=== PATIENT | female | born 1930 | race Caucasian/White ===

== ENCOUNTER 2018-11-10 17:16 | Inpatient (IN) ==
[2018-11-10] MEDS ORDERED: ACETAMINOPHEN 325 MG TABLET PO ONE (17:25)
[2018-11-10] MEDS ORDERED: 0.9 % SODIUM CHLORIDE 1,000 ML IV ONE ×3 (17:28→19:55)
[2018-11-10] MEDS ORDERED: cefTRIAXone 1 GM VIAL IV ONE (18:10)
--- NOTE | 2018-11-10 18:23 | XRay Report ---
HISTORY: Fever FINDINGS: A small patchy infiltrate has developed inferiorly and medially in the right lower lobe. Medially in the left lung base there is a wedge-shaped band of consolidated lung parenchyma. This was present on prior exams and may represent residual scar tissue. The mid and upper lung morales are clear. The heart is upper limits of normal in size. There is no congestive heart failure or pleural effusion. Moderate arthritis is present in both shoulders, right worse than left. IMPRESSION: Mild right lower lobe pneumonia Interpreted and Authenticated by: Farhan Caruso 11/10/18
[2018-11-10 18:37] LABS: Basophils # (Auto) 0 K/mcL (0.0-0.3); Basophils % (Auto) 0.1 % (0.0-2.0); Eosinophils # (Auto) 0 K/mcL (0.0-0.7); Eosinophils % (Auto) 0 % (0.0-7.0); Granulocytes % (Auto) 86.7 % (38.0-78.0); Lymphocytes # (Auto) 0.8 K/mcL (1.5-4.8); Lymphocytes % (Auto) 5.1 % (15.5-49.0); Mean Cell Volume 94.1 fL (80.0-100.0); Mean Corpuscular HGB Conc 32.9 g/dL (31.0-36.0); Monocytes # (Auto) 1.3 K/mcL (0.1-0.9); Monocytes % (Auto) 8.1 % (1.0-12.0); Platelet Count 252 K/mcL (140-440); RBC 4.14 M/mcL (4.00-5.20); Red Cell Distribution Width 13.9 % (11.5-14.5)
[2018-11-10 18:50] LABS: ALT/SGPT 9 U/l (0-40); Albumin 3.7 gm/dL (3.2-5.2); Albumin/Globulin Ratio 1.2 (1.0-2.3); Alkaline Phosphatase 83 U/L (39-117); Blood Urea Nitrogen 22 mg/dl (8-23)
[2018-11-10 19:01] LABS: Appearance,Urine CLOUDY; Bacteria,Urine 0 /hpf (0); Bilirubin,Urine NEG (NEG); Color,Urine YELLOW; Glucose,Urine (UA) NEGATIVE (NEG); Leukocyte Esterase,Urine 250 /uL (NEG); Mucus,Urine MOD /hpf (0); Protein,Urine 100 mg/dL (NEG); Specific Gravity,Urine 1.014 (1.000-1.035); Urine Blood 0.03 mg/dL (<0.03); Urine RBC 52 /hpf (0-1); Urine Squamous Epithelial Cell 0 /hpf (0-4); Urine WBC > 182 /hpf (0-4); Urobilinogen,Urine NEG (NEG)
--- NOTE | 2018-11-10 19:15 | Emergency Department Note ---
Fever HPI - General Chief Complaint: Fever Stated Complaint: Fever Time Seen by Provider: 11/10/18 17:27 Source: EMS Mode of arrival: EMS Limitations: no limitations - History of Present Illness HPI Narrative: 87-year-old female presents with 103 fever, weakness, and worsening confusion. She does have dementia and lives in assisted living facility. They could not get her up and out of bed and noted she had a fever. They sent her to minor care who further sent her to the ER for further evaluation. patient is very confused. States she does need to be here and she is not sick. She denies cough or cold symptoms however family with her reports they think she is had a cough. Denies nausea, vomiting, or diarrhea. No sore throat or ear pain. No abdominal pain. No dysuria or frequency. Extremely poor historian. - Related Data Home Medications Medication Instructions Recorded Confirmed carboxymethylcellulose sodium 0.5 1 drp OPHTHALMIC 4-8XD PRN 04/17/18 11/03/18 % eye drops vitamins A,C,Z-ydgg-fbizwj 14,320 1 cap PO BID 04/17/18 11/03/18 unit-226 mg-200 unit capsule Previous Rx's Medication Instructions Recorded Briefs, Pull-Ups, Pads/Liners #240 each 10/09/17 Underpads, Disposable #150 each 10/09/17 Underpads, Washable #2 each 10/09/17 acetaminophen 325 mg tablet 650 mg PO Q4H PRN #90 tab 10/09/17 loperamide 2 mg capsule 2 mg PO .COMPLEX PRN #30 cap MDD 8 10/09/17 capsules psyllium oral powder 2 tsp PO QDAY PRN #300 g 10/09/17 terbinafine HCl 1 % topical cream 1 applic TOPICAL .COMPLEX #30 g 10/09/17 polyethylene glycol 3350 17 17 g PO BID PRN #255 g 03/19/18 gram/dose oral powder sennosides 8.6 mg-docusate sodium 1 tab PO BID #180 tab 03/19/18 50 mg tablet pantoprazole 40 mg tablet,delayed 40 mg PO QDAY #90 tab 04/29/18 release donepezil 10 mg tablet 10 mg PO QHS #90 tab 09/26/18 metoprolol succinate ER 50 mg 50 mg PO QDAY #90 tab 09/26/18 tablet,extended release 24 hr oxybutynin chloride ER 10 mg 10 mg PO QAM #90 tab 09/26/18 tablet,extended release 24 hr sertraline 50 mg tablet 50 mg PO QHS #90 tab 10/13/18 cholecalciferol (vitamin D3) 2,000 2,000 unit PO QAM #90 cap 10/17/18 unit capsule atorvastatin 10 mg tablet 10 mg PO QHS #90 tab 10/21/18 calcium carbonate 600 mg calcium 600 mg PO QAM #90 tab 10/21/18 (1,500 mg) tablet dabigatran etexilate 75 mg capsule 75 mg PO BID #180 cap 10/21/18 diltiazem CD 120 mg 120 mg PO QAM #90 cap 10/21/18 capsule,extended release 24 hr furosemide 20 mg tablet 20 mg PO .COMPLEX #90 tab 10/21/18 xhlpmjts-dkh-iqzer acid 0.4 1 tab PO QAM #90 tab 10/21/18 mg-lycopene 300 mcg-lutein 250 mcg tablet cyanocobalamin (vit B-12) 500 mcg 500 mcg PO QAM #90 tab 10/28/18 tablet Allergies Allergy/AdvReac Type Severity Reaction Status Date / Time codeine AdvReac Mild Vomiting Verified 11/03/18 11:28 Review of Systems All systems ED: reviewed and negative except as stated. Fever PMH - Past Medical History [facility] Narrative: Medical History (Last Reviewed 11/03/18 @ 11:55 by Mark Campos MD) PAF (paroxysmal atrial fibrillation) (Chronic) Secondary hyperparathyroidism of renal origin (Chronic) Vitamin D deficiency (Chronic) Localized edema due to fluid overload (Chronic) Benign hypertension with CKD (chronic kidney disease) stage III (Chronic) CKD (chronic kidney disease) stage 3, GFR 30-59 ml/min (Chronic) Dementia due to Alzheimer's disease (Chronic) Memory loss (Chronic) Urinary tract infection (Chronic) Hypothermia (Chronic) Atrial fibrillation with RVR (Chronic) Severe sepsis with acute organ dysfunction (Chronic) Onychogryposis of toenail (Chronic) Ecchymosis on examination (Resolved) Leukocytosis (Chronic) Noncompliance with medication regimen (Chronic) Syncope (Resolved) Emesis (Resolved) Sinusitis, acute (Resolved) Stress and adjustment reaction (Chronic) Anxiety (Chronic) Vasomotor instability (Chronic) Schatzki's ring (Chronic) Pes planus (Chronic 05/27/14) Peripheral vascular disease (Chronic) Overweight (Chronic) Osteoporosis (Chronic) Osteoarthritis (Chronic) Liver lesion (Chronic) Lichen simplex chronicus (Chronic) Hypotension (Chronic 07/14/13) Hyperlipidemia (Chronic) Hypercalcemia (Chronic) Hiatal hernia (Chronic) Hemorrhoids (Chronic) Hammer toe (Chronic) Hallux valgus, acquired (Chronic) GERD (gastroesophageal reflux disease) (Chronic) Fatigue (Chronic 07/14/13) Elevated serum creatinine (Chronic 02/21/14) Elevated CPK (Chronic) Edema (Chronic) Dyspepsia (Chronic) Depression (Chronic 05/27/14) Colon adenoma (Chronic) Carpal tunnel syndrome, right (Chronic) Right carotid bruit (Chronic) Cardiomegaly (Chronic) Atrial fibrillation (Chronic 03/10/13) Adrenal nodule (Chronic) Pneumonia (Inactive) Past Surgical History (Last Reviewed 11/03/18 @ 11:55 by Mark Campos MD) H/O esophagogastroduodenoscopy (Chronic 03/03/10) Hx of colonoscopy (Chronic 03/15/11) H/O unilateral oophorectomy (Inactive) History of appendectomy (Inactive) History of bladder surgery (Inactive) Hx of cataract surgery (Inactive) Hx of cholecystectomy (Inactive) Hx of tonsillectomy (Inactive) S/P bunionectomy (Inactive) S/P hammer toe correction (Inactive) S/P hemorrhoidectomy (Inactive) S/P lumbar spinal fusion (Inactive) S/P total knee arthroplasty (Inactive) Medical history: Reports: arthritis, atrial fibrillation, GERD, hyperlipidemia, osteoporosis, peripheral artery disease, other (patient relatively poor historian; reports placed on a blood pressure medication and blood thinner, reason not known) - Social History smoking status: Former smoker Alcohol use: Reports: None Drug use: Reports: none Physical Exam Limitations: no limitations General appearance: alert (Alert and converses and answers yes and no but obviously very confused. This is her baseline due to dementia but may be slightly worse according to family), other (warm) Head: atraumatic, normocephalic, normal inspection Eye: Present: normal appearance. Absent: conjunctival injection ENT: normal exam, normal oropharynx, mucous membranes moist, normal external ear exam Neck: Present: normal inspection, full ROM, trachea midline. Absent: tenderness, meningismus, lymphadenopathy Chest: Present: symmetric chest wall rise Respiratory: Present: normal lung sounds bilaterally, other (Diminished in the bases bilaterally otherwise clear throughout). Absent: respiratory distress, rales/crackles, accessory muscle use Cardiovascular: Present: tachycardia (A. fib in the 120s on arrival. After 500 L bolus of fluid she is sinus rhythm in the 80s.), normal heart sounds Abdominal: Present: soft, normal bowel sounds. Absent: distention, tenderness, guarding, mass Extremities: Present: normal inspection. Absent: pedal edema Neurological: Present: alert, oriented X3 Psychiatric: Present: normal affect, normal mood Skin: Present: warm, dry, intact, normal color. Absent: rash, cyanosis, diaphoresis, erythema Course Course Narrative: At 1999, I did speak with Dr. Moreno, hospitalist who agrees to accept this patient. He would like us to hang another liter of fluid, started Levophed drip, and start Levaquin and Zosyn which have all been ordered. Vital Signs Temperature 99.9 F H 11/10/18 17:17 Pulse Rate 135 H 11/10/18 17:17 Respiratory Rate 18 11/10/18 17:17 Blood Pressure 109/65 11/10/18 17:17 Pulse Oximetry (%) 92 11/10/18 17:17 Temperature 99.7 F H 11/10/18 20:31 Pulse Rate 64 11/10/18 20:31 Respiratory Rate 21 11/10/18 20:31 Blood Pressure 115/56 11/10/18 20:31 Pulse Oximetry (%) 100 11/10/18 20:31 Fever - Lab Data Lab results reviewed: Yes I reviewed the patient's lab results. Result diagrams: 11/10/18 17:36 11/10/18 17:36 Lab Results 11/10/18 11/10/18 11/10/18 Range/Units 17:36 17:36 17:36 WBC 15.9 H (4.5-11.0) K/mcL RBC 4.14 (4.00-5.20) M/mcL Hgb 12.8 (12.0-15.0) g/dL Hct 39.0 (36.0-48.0) % MCV 94.1 (80.0-100.0) fL MCH 31.0 (26.0-34.0) pg MCHC 32.9 (31.0-36.0) g/dL RDW 13.9 (11.5-14.5) % Plt Count 252 (140-440) K/mcL MPV 9.6 (7.4-10.4) fL Gran % 86.7 H (38.0-78.0) % Lymph % (Auto) 5.1 L (15.5-49.0) % [place] % (Auto) 8.1 (1.0-12.0) % Eos % (Auto) 0 (0.0-7.0) % Baso % (Auto) 0.1 (0.0-2.0) % Gran # 13.8 H (1.8-8.0) K/mcL Lymph # (Auto) 0.8 L (1.5-4.8) K/mcL [place] # (Auto) 1.3 H (0.1-0.9) K/mcL Eos # (Auto) 0 (0.0-0.7) K/mcL Baso # (Auto) 0 (0.0-0.3) K/mcL VBG Lactic Acid 1.2 (0.5-2.0) mmol/L Sodium 138 (133-145) mmol/L Potassium 4.1 (3.3-5.1) mmol/L Chloride 102 (96-108) mmol/L Carbon Dioxide 21 L (22-30) mmol/L Anion Gap 15.0 (8-16) BUN 22 (8-23) mg/dl Creatinine 1.5 H (0.6-1.1) mg/dl GFR Calculation 31 Glucose 118 H (70-105) mg/dL Calcium 9.5 (8.6-10.4) mg/dl Total Bilirubin 0.6 (0.0-1.0) mg/dL AST 21 (0-37) U/l ALT 9 (0-40) U/l Alkaline Phosphatase 83 (39-117) U/L Total Protein 6.9 (5.9-8.4) gm/dL Albumin 3.7 (3.2-5.2) gm/dL Globulin 3.2 (2.2-3.7) gm/dL Albumin/Globulin Ratio 1.2 (1.0-2.3) Procalcitonin (<0.10) ng/mL Urine Color Urine Appearance Urine pH (5.0-9.0) Ur Specific [place] (1.000-1.035) Urine Protein (NEG) mg/dL Urine Glucose (UA) (NEG) mg/dL Urine Ketones (NEG) mg/dL Urine Occult Blood (<0.03) mg/dL Urine Nitrate (NEG) Urine Bilirubin (NEG) mg/dL Urine Urobilinogen (NEG) mg/dL Ur Leukocyte Esterase (NEG) /uL Urine RBC (0-1) /hpf Urine WBC (0-4) /hpf Ur Squamous Epith Cells (0-4) /hpf Urine Bacteria (0) /hpf Urine Mucus (0) /hpf Ur Culture Indicated? 11/10/18 11/10/18 Range/Units 17:36 18:12 WBC (4.5-11.0) K/mcL RBC (4.00-5.20) M/mcL Hgb (12.0-15.0) g/dL Hct (36.0-48.0) % MCV (80.0-100.0) fL MCH (26.0-34.0) pg MCHC (31.0-36.0) g/dL RDW (11.5-14.5) % Plt Count (140-440) K/mcL MPV (7.4-10.4) fL Gran % (38.0-78.0) % Lymph % (Auto) (15.5-49.0) % [place] % (Auto) (1.0-12.0) % Eos % (Auto) (0.0-7.0) % Baso % (Auto) (0.0-2.0) % Gran # (1.8-8.0) K/mcL Lymph # (Auto) (1.5-4.8) K/mcL [place] # (Auto) (0.1-0.9) K/mcL Eos # (Auto) (0.0-0.7) K/mcL Baso # (Auto) (0.0-0.3) K/mcL VBG Lactic Acid (0.5-2.0) mmol/L Sodium (133-145) mmol/L Potassium (3.3-5.1) mmol/L Chloride (96-108) mmol/L Carbon Dioxide (22-30) mmol/L Anion Gap (8-16) BUN (8-23) mg/dl Creatinine (0.6-1.1) mg/dl GFR Calculation Glucose (70-105) mg/dL Calcium (8.6-10.4) mg/dl Total Bilirubin (0.0-1.0) mg/dL AST (0-37) U/l ALT (0-40) U/l Alkaline Phosphatase (39-117) U/L Total Protein (5.9-8.4) gm/dL Albumin (3.2-5.2) gm/dL Globulin (2.2-3.7) gm/dL Albumin/Globulin Ratio (1.0-2.3) Procalcitonin 2.44 (<0.10) ng/mL Urine Color Yellow Urine Appearance Cloudy Urine pH 7.0 (5.0-9.0) Ur Specific [place] 1.014 (1.000-1.035) Urine Protein 100 A (NEG) mg/dL Urine Glucose (UA) Negative (NEG) mg/dL Urine Ketones Neg (NEG) mg/dL Urine Occult Blood 0.03 A (<0.03) mg/dL Urine Nitrate Pos A (NEG) Urine Bilirubin Neg (NEG) mg/dL Urine Urobilinogen Neg (NEG) mg/dL Ur Leukocyte Esterase 250 A (NEG) /uL Urine RBC 52 H (0-1) /hpf Urine WBC > 182 H (0-4) /hpf Ur Squamous Epith Cells 0 (0-4) /hpf Urine Bacteria 0 (0) /hpf Urine Mucus Mod (0) /hpf Ur Culture Indicated? Yes - Radiology Data Radiology results reviewed: Yes I reviewed the patient's radiology results. Disposition Pt seen by LICENSE EXAMINER/PA only: No Clinical Impression: UTI (urinary tract infection), Pneumonia, Hypotension Disposition: Xfer As Inpt ([facility]) Condition: Serious Referrals: Mark Campos MD [Primary Care Provider] - Time of Disposition: 20:00
[2018-11-10] MEDS ORDERED: LEVOFLOXACIN 500 MG/100 ML BAG IV ONE (19:55)
[2018-11-10] MEDS ORDERED: PIPERACILLIN SODIUM/TAZOBACTAM 3.375 GM in DEXTROSE 5% IN WATER 50 ML IV ONE (19:55)
--- NOTE | 2018-11-10 19:59 | Internal Med History&Physical ---
Medical - H&P: [facility] Patient information: Note initiated : 11/10/18 at 7:59 pm Service Date, if different from initiated Date: [] Patient: Margaret Trujillo 87 y/o F admitted on for Fever. Chief Complaint: [] Chief complaint: confusion and weakness History of present illness: Ms. Trujillo is a 87 year old F assisted care facility resident who was brought in after she had a progressive mental status decline over the last 24 hours. The staff is concerned because of high-grade fever and decreased level of responsiveness. Patient was last seen normal 36 hour prior to presentation. She has been getting confused with increasing lethargy, malaise and loss of appetite. No further history could be obtained Initial workup in the ER was consistent [place] [address], evidence of end organ dysfunction with blood pressure systolics 80s. Patient started on broad antibiotic coverage after imaging revealed right sided infiltrate and pyuria on UA. Hospitalist service was subsequently consulted At the time of evaluation patient is lethargic fatigued and confused. No further history could be obtained. Most of the history was obtained from review of medical records. Patient is currently being challenges with crystalloids to keep map at goal. Admitted to ICU in light of systolics 80s. Patient be initiated on pressors. Review of systems 10 point review systems was attempted but could not be performed due to patient's mental status Medical - H&P: PM Medical history: PAF (paroxysmal atrial fibrillation) (Chronic) Secondary hyperparathyroidism of renal origin (Chronic) Vitamin D deficiency (Chronic) Localized edema due to fluid overload (Chronic) Benign hypertension with CKD (chronic kidney disease) stage III (Chronic) CKD (chronic kidney disease) stage 3, GFR 30-59 ml/min (Chronic) Dementia due to Alzheimer's disease (Chronic) Memory loss (Chronic) Urinary tract infection (Chronic) Hypothermia (Chronic) Atrial fibrillation with RVR (Chronic) Severe sepsis with acute organ dysfunction (Chronic) Onychogryposis of toenail (Chronic) Ecchymosis on examination (Resolved) Leukocytosis (Chronic) Noncompliance with medication regimen (Chronic) Syncope (Resolved) Emesis (Resolved) Sinusitis, acute (Resolved) Stress and adjustment reaction (Chronic) Anxiety (Chronic) Vasomotor instability (Chronic) Schatzki's ring (Chronic) Pes planus (Chronic 05/27/14) Peripheral vascular disease (Chronic) Overweight (Chronic) Osteoporosis (Chronic) Osteoarthritis (Chronic) Liver lesion (Chronic) Lichen simplex chronicus (Chronic) Hypotension (Chronic 07/14/13) Hyperlipidemia (Chronic) Hypercalcemia (Chronic) Hiatal hernia (Chronic) Hemorrhoids (Chronic) Hammer toe (Chronic) Hallux valgus, acquired (Chronic) GERD (gastroesophageal reflux disease) (Chronic) Fatigue (Chronic 07/14/13) Elevated serum creatinine (Chronic 02/21/14) Elevated CPK (Chronic) Edema (Chronic) Dyspepsia (Chronic) Depression (Chronic 05/27/14) Colon adenoma (Chronic) Carpal tunnel syndrome, right (Chronic) Right carotid bruit (Chronic) Cardiomegaly (Chronic) Atrial fibrillation (Chronic 03/10/13) Adrenal nodule (Chronic) Pneumonia (Inactive) Past Surgical History H/O esophagogastroduodenoscopy (Chronic 03/03/10) Hx of colonoscopy (Chronic 03/15/11) H/O unilateral oophorectomy (Inactive) History of appendectomy (Inactive) History of bladder surgery (Inactive) Hx of cataract surgery (Inactive) Hx of cholecystectomy (Inactive) Hx of tonsillectomy (Inactive) S/P bunionectomy (Inactive) S/P hammer toe correction (Inactive) S/P hemorrhoidectomy (Inactive) S/P lumbar spinal fusion (Inactive) S/P total knee arthroplasty (Inactive) Family History Sister Malignant neoplasm of female breast Diabetes mellitus Pulmonary embolism hypercoaguable Father of unknown cause Brother Diabetes mellitus Mother Cardiac disease Acute myocardial infarction Social History caregiver/support person: Yes household members: caregiver housing: assisted living facility lives independently: No marital status: occupational status: retired smoking status: Former smoker alcohol intake frequency: a few times a week Medical - H&P: Meds Home Medications Medication Instructions Recorded Confirmed Type Underpads, Disposable #150 each 10/09/17 11/03/18 Rx Underpads, Washable #2 each 10/09/17 11/03/18 Rx acetaminophen 325 mg tablet 650 mg PO Q4H PRN #90 tab 10/09/17 11/11/18 Rx loperamide 2 mg capsule 2 mg PO .COMPLEX PRN #30 cap MDD 8 10/09/17 11/11/18 Rx capsules psyllium oral powder 2 tsp PO QDAY PRN #300 g 10/09/17 11/11/18 Rx terbinafine HCl 1 % topical cream 1 applic TOPICAL .COMPLEX #30 g 10/09/17 11/11/18 Rx polyethylene glycol 3350 17 17 g PO BID PRN #255 g 03/19/18 11/11/18 Rx gram/dose oral powder sennosides 8.6 mg-docusate sodium 1 tab PO BID #180 tab 03/19/18 11/11/18 Rx 50 mg tablet vitamins A,C,N-ipgw-oxbgzt 14,320 1 cap PO BID 04/17/18 11/11/18 History unit-226 mg-200 unit capsule pantoprazole 40 mg tablet,delayed 40 mg PO QDAY #90 tab 04/29/18 11/11/18 Rx release donepezil 10 mg tablet 10 mg PO QHS #90 tab 09/26/18 11/11/18 Rx metoprolol succinate ER 50 mg 50 mg PO QDAY #90 tab 09/26/18 11/03/18 Rx tablet,extended release 24 hr oxybutynin chloride ER 10 mg 10 mg PO QAM #90 tab 09/26/18 11/11/18 Rx tablet,extended release 24 hr sertraline 50 mg tablet 50 mg PO QHS #90 tab 10/13/18 11/11/18 Rx cholecalciferol (vitamin D3) 2,000 2,000 unit PO QAM #90 cap 10/17/18 11/11/18 Rx unit capsule atorvastatin 10 mg tablet 10 mg PO QHS #90 tab 10/21/18 11/11/18 Rx calcium carbonate 600 mg calcium 600 mg PO QAM #90 tab 10/21/18 11/11/18 Rx (1,500 mg) tablet dabigatran etexilate 75 mg capsule 75 mg PO BID #180 cap 10/21/18 11/11/18 Rx diltiazem CD 120 mg 120 mg PO QAM #90 cap 10/21/18 11/11/18 Rx capsule,extended release 24 hr furosemide 20 mg tablet 20 mg PO .COMPLEX #90 tab 10/21/18 11/11/18 Rx xaxwzaay-hms-jcnff acid 0.4 1 tab PO QAM #90 tab 10/21/18 11/11/18 Rx mg-lycopene 300 mcg-lutein 250 mcg tablet cyanocobalamin (vit B-12) 500 mcg 500 mcg PO QAM #90 tab 10/28/18 11/11/18 Rx tablet Briefs, Pull-Ups, Pads/Liners 11/11/18 History Carboxymethyl/Gly/Poly80/Pf 1 each OU QID 11/11/18 11/11/18 History [Refresh Optive Advanced Drops] Allergies Allergy/AdvReac Type Severity Reaction Status Date / Time codeine AdvReac Mild Vomiting Verified 11/03/18 11:28 Medical - H&P: Exam - Constitutional Vitals: Temp Pulse Resp BP Pulse Ox 100.1 F H 68 12 89/51 95 11/10/18 19:33 11/10/18 19:33 11/10/18 19:33 11/10/18 19:33 11/10/18 19:33 General appearance: moderate distress (shortness of breath and confused) Exam: IV movements symmetrical Head normocephalic oral cavity dry No eardischarge neck no lymphadenopathy S1 and S2 irregular rhythm Diminished breath sounds bases with inspiratory crackles right posterior chest Abdomen soft nontender Lower extremity no cyanosis clubbing Skin no suspicious lesion Psych confused and lethargic Neuro nonfocal Medical - H&P: Reslt - Labs CBC & Chem 7: 11/11/18 03:31 11/11/18 03:31 Labs: Short CBC 11/10/18 Range/Units 17:36 WBC 15.9 H (4.5-11.0) K/mcL Hgb 12.8 (12.0-15.0) g/dL Hct 39.0 (36.0-48.0) % Plt Count 252 (140-440) K/mcL BMP 11/10/18 17:36 Sodium 138 Potassium 4.1 Chloride 102 Carbon Dioxide 21 L BUN 22 Creatinine 1.5 H Glucose 118 H Calcium 9.5 Liver Function 11/10/18 Range/Units 17:36 Total Bilirubin 0.6 (0.0-1.0) mg/dL AST 21 (0-37) U/l ALT 9 (0-40) U/l Alkaline Phosphatase 83 (39-117) U/L Albumin 3.7 (3.2-5.2) gm/dL Urine 11/10/18 Range/Units 18:12 Urine Color Yellow Urine Appearance Cloudy Urine pH 7.0 (5.0-9.0) Ur Specific [place] 1.014 (1.000-1.035) Urine Protein 100 A (NEG) mg/dL Urine Glucose (UA) Negative (NEG) mg/dL Medical - H&P: A/P (1) Septic shock Current visit: Yes Status: Acute * Septic shock secondary to right lower lobe pneumonia-continue crystalloids/pressors to keep map at goal. Check venous lactate. On antibiotic coverage. Continue management per guidelines. * Right lower lobe pneumonia-continue supplemental oxygen/empiric antibiotic for community acquired pathogen/nosocomial organism. Sputum Gram stain * Complicated UTI- continue broad antibiotic coverage/urine culture/tasted based on sensitivities. Abdominal imaging to rule out obstructive uropathy * Chronic kidney disease-continue monitoring * A. fib RVR with a history of Paroxysmal atrial fibrillation-continue IV metoprolol as needed * Anticoagulation on Pradaxa * History of dementia on donepezil * Anxiety disorder on sertraline * Code full code Plan * Broad antibiotic coverage/vasopressors/pancultures and sepsis management per guidelines * Supplemental oxygen/pulmonary toilet/aspiration precaution * Interval chest imaging/lactic acid/central venous oxygen sats * Rate control measures * Anticoagulation Total time spent on admission physical in excess of 70 minutes. Additional 45 minutes critical care time spent on septic shock management/reviewing labs and imaging in ICU care.
[2018-11-10] MEDS ORDERED: NOREPINEPHRINE BITARTRATE 8 MG in 0.9 % SODIUM CHLORIDE 242 ML IV SCH (20:00)
--- NOTE | 2018-11-10 20:18 | Emergency Department Note ---
ED Note Addendum Note Addendum: I discussed this case with the mid-level provider and agree with the assessment and plan.
[2018-11-10] MEDS ORDERED: ACETAMINOPHEN 325 MG TABLET PO PRN (21:04)
[2018-11-10] MEDS ORDERED: ACETAMINOPHEN 1,000 MG/100 ML BOTTLE IV PRN (21:04)
[2018-11-10] MEDS ORDERED: LEVOFLOXACIN 750 MG/150 ML BAG IV SCH ×2 (21:04→22:15)
[2018-11-10] MEDS ORDERED: IPRATROPIUM/ALBUTEROL 3 ML AMPUL.NEB NEB PRN (21:04)
[2018-11-10] MEDS ORDERED: PIPERACILLIN SODIUM/TAZOBACTAM 3.375 GM in DEXTROSE 5% IN WATER 50 ML IV SCH (21:04)
[2018-11-10] MEDS ORDERED: MAGNESIUM SULFATE 2 GM/50 ML BAG IV PRN (21:04)
[2018-11-10] MEDS ORDERED: POTASSIUM CHLORIDE 20 MEQ PACKET PO PRN (21:04)
[2018-11-10] MEDS ORDERED: ONDANSETRON 4 MG/2 ML VIAL IV PRN (21:04)
[2018-11-10] MEDS ORDERED: ACETAMINOPHEN 1,000 MG/100 ML BOTTLE IV ONE (21:23)
[2018-11-10] MEDS: DOCUSATE SODIUM 100 MG CAPSULE PO SCH (21:59)
[2018-11-10] MEDS: SENNOSIDES/DOCUSATE SODIUM 1 TAB TABLET PO SCH (21:59)
[2018-11-10] MEDS: 0.9 % SODIUM CHLORIDE 1,000 ML IV SCH (22:00)
[2018-11-10] MEDS: 0.9 % SODIUM CHLORIDE 10 ML SYRINGE IV SCH (22:01)
[2018-11-10] MEDS: 0.9 % SODIUM CHLORIDE 250 ML IV SCH ×2 (22:08→23:08)
[2018-11-10] MEDS: HEPARIN 5,000 UNIT/ML VIAL SQ SCH (22:14)
[2018-11-10] MEDS: LEVOFLOXACIN 750 MG/150 ML BAG IV SCH (22:15)
[2018-11-10] MEDS: NOREPINEPHRINE BITARTRATE 4 MG/4 ML VIAL IV ONE ×2 (23:03→23:06)
[2018-11-10] MEDS: NOREPINEPHRINE BITARTRATE 16 MG in 0.9 % SODIUM CHLORIDE 234 ML IV SCH ×2 (23:03→23:05)
[2018-11-11] MEDS: PIPERACILLIN SODIUM/TAZOBACTAM 2.25 GM in DEXTROSE 5% IN WATER 50 ML IV SCH ×4 (00:38→17:20)
[2018-11-11] MEDS: 0.9 % SODIUM CHLORIDE 10 ML SYRINGE IV SCH ×3 (05:40→22:00)
[2018-11-11 06:07] LABS: Mean Cell Volume 94.9 fL (80.0-100.0); Mean Corpuscular HGB Conc 32.6 g/dL (31.0-36.0); Platelet Count 232 K/mcL (140-440)
[2018-11-11 06:36] LABS: ALT/SGPT 10 U/l (0-40); Albumin 3.3 gm/dL (3.2-5.2); Albumin/Globulin Ratio 1.2 (1.0-2.3); Alkaline Phosphatase 82 U/L (39-117); Bilirubin,Direct < 0.2 mg/dL (0.0-0.3); Blood Urea Nitrogen 22 mg/dl (8-23); Gamma Glutamyl Transpeptidase 20 U/L (5-36); Uric Acid 4.1 mg/dL (2.5-8.0)
[2018-11-11] MEDS: HEPARIN 5,000 UNIT/ML VIAL SQ SCH (07:30)
--- NOTE | 2018-11-11 08:05 | Internal Med Progress Note ---
Medical - PN: Subj Patient information: Note initiated : 11/11/18 at 8:01 am Service Date, if different from initiated Date: [] Patient: Margaret Trujillo 87 y/o F admitted on 11/10/18 for Fever. Chief Complaint: [] Interval history: Ms. Trujillo is a 87 year old F assisted care facility resident who was brought in after she has a progressive mental status decline over the last 24 hours. The staff is concerned because of high-grade fever and decreased level of responsiveness. Patient was last seen normal 36 hour prior to presentation. She has been getting pretty confused with increasing lethargic malaise and loss of appetite. No further history could be obtained Initial workup in the ER was consistent with severe sepsis with elevated white count, evidence of end organ dysfunction with blood pressure systolics 80s. Patient started on broad antibiotic coverage after imaging revealed right sided infiltrate. Hospitalist service was subsequently consulted At the time of evaluation patient is lethargic fatigued and confused. No further history could be obtained. Most of the history was obtained from review of medical records. Patient is currently being challenges with crystalloids to keep map at goal. Admitted to ICU in light of systolics 80s. Patient be initiated on pressors. 11/11-overnight only Levophed/crystalloids with intermittent RVR. Critically ill. MAXIMUM TEMPERATURE 103. White count over 23,000. gram-negative rods on blood cultures. CT chest, abdomen and pelvis to evaluate source for bacteremia. Repeat surveillance cultures. Continue antibiotic coverage - Constitutional Vitals: Vital Signs Temp Pulse Resp BP Pulse Ox 99.5 F H 58 L 17 116/69 98 11/11/18 07:58 11/11/18 07:00 11/11/18 07:58 11/11/18 07:58 11/11/18 07:00 Period Temp Pulse Resp BP Sys/Cruz Pulse Ox Last 24 Hr 97.2 F-103.5 F 46-135 12-30 87-136/39-102 91-100 Intake and Output 11/10/18 11/11/18 11/11/18 21:59 05:59 13:59 Intake Total 1931 156 50 Output Total 423 75 Balance 1931 -267 -25 Weight 170 lb Intake & Output: Intake & Output 11/10/18 11/11/18 11/11/18 21:59 05:59 13:59 Intake Total 1931 156 50 Output Total 423 75 Balance 1931 -267 -25 Weight 170 lb Intake: IV 1931 156 50 Sodium Chloride 0.9% 1,000 ml @ 1882 Wide Open IV [facility] Rx#: [id number] Sodium Chloride 0.9% 250 ml @ 0 20 mls/hr IV .[id number] [facility] Rx#: [id number] Levophed 16 mg In Sodium 6 Chloride 0.9% 234 ml @ 10 MCG/ MIN 9.38 mls/hr IV Q24H [facility] Rx# :[id number] Zosyn 2.25 gm In Dextrose 5% in 50 50 Water 50 ml @ 100 mls/hr IV Q6H [facility] Rx#:[id number] Zosyn 3.375 gm In Dextrose 5% 50 in Water 50 ml @ 100 mls/hr IV ONCE ONE Rx#:[id number] Output: Urine Catheter Amount 423 55 Void Amount 20 Other: Urine Appearance Cloudy Clear Sediment Uretheral ([place]amorado) Cloudy Cloudy Sediment Sediment Urine Color Dark Yellow Dark Yellow Uretheral ([place]) Straw Dark Yellow Urine Odor Strong Normal General appearance: moderate distress, no acute distress Exam: Improved anxiety Respond to verbal commands Minimally labored breathing A. fib RVR intermittent, currently in sinus Foleys draining clear urine Medical - PN: Obj Da - Labs CBC & Chem 7: 11/11/18 03:31 11/11/18 03:31 Labs: Abnormal Lab Results 11/11/18 11/11/18 11/10/18 03:31 03:31 18:12 WBC 23.6 H RBC 3.80 L Hgb 11.8 L Gran % Lymph % (Auto) Gran # Lymph # (Auto) [place] # (Auto) Carbon Dioxide 20 L Creatinine 1.5 H Glucose Calcium 8.5 L Urine Protein 100 A Urine Occult Blood 0.03 A Urine Nitrate Pos A Ur Leukocyte Esterase 250 A Urine RBC 52 H Urine WBC > 182 H 11/10/18 11/10/18 17:36 17:36 WBC 15.9 H RBC Hgb Gran % 86.7 H Lymph % (Auto) 5.1 L Gran # 13.8 H Lymph # (Auto) 0.8 L [place] # (Auto) 1.3 H Carbon Dioxide 21 L Creatinine 1.5 H Glucose 118 H Calcium Urine Protein Urine Occult Blood Urine Nitrate Ur Leukocyte Esterase Urine RBC Urine WBC Meds: Medications Acetaminophen (Tylenol) 650 mg PO Q4-6HP PRN PRN Reason: PAIN/FEVER > 101 Albuterol/Ipratropium (Duoneb) 3 ml NEB Q4HP PRN PRN Reason: Shortness Of Breath Docusate Sodium (Colace) 100 mg PO BID [facility] Last Admin: 11/10/18 21:59 Dose: Not Given Documented by: Heparin Sodium (Porcine) (Heparin) 5,000 unit SQ Q12 [facility] Last Admin: 11/11/18 07:30 Dose: 5,000 unit Documented by: Sodium Chloride (Sodium Chloride 0.9%) 250 mls @ 20 mls/hr IV .[id number] [facility] Last Infusion: 11/11/18 03:14 Dose: 15 mls/hr Documented by: Magnesium Sulfate (Magnesium Sulfate) 2 gm in 50 mls @ 50 mls/hr IV UD PRN PRN Reason: MG = or < 1.7 Norepinephrine Bitartrate 16 (mg/ Sodium Chloride) 250 mls @ 9.38 mls/hr IV Q24H [facility]; Protocol Last Titration: 11/11/18 03:45 Dose: 8 mcg/min, 7.5 mls/hr Documented by: Sodium Chloride (Sodium Chloride 0.9%) 1,000 mls @ 50 mls/hr IV .Q20H [facility] Stop: 11/13/18 09:03 Last Admin: 11/10/18 22:00 Dose: 50 mls/hr Documented by: Acetaminophen (Ofirmev) 1,000 mg in 100 mls @ 200 mls/hr IV Q6HP PRN PRN Reason: PAIN/FEVER > 101 Piperacillin Sod/Tazobactam (Sod 2.25 gm/ Dextrose) 50 mls @ 100 mls/hr IV Q6H [facility]; Protocol Last Infusion: 11/11/18 06:10 Dose: Infused Documented by: Levofloxacin (Levaquin) 750 mg in 150 mls @ 100 mls/hr IV Q48H [facility]; Protocol Last Admin: 11/10/18 22:15 Dose: Not Given Documented by: Ondansetron HCl (Zofran) 4 mg IV Q4-6HP PRN PRN Reason: Nausea And Vomiting Potassium Chloride (Klor-Con) 40 meq PO DAILYP PRN PRN Reason: K+ < 3.5 Senna/Docusate Sodium (Senna Plus Tablet) 1 tab PO HS [facility] Last Admin: 11/10/18 21:59 Dose: Not Given Documented by: Sodium Chloride (Saline Flush) 10 ml IV Q8 [facility] Last Admin: 11/11/18 05:40 Dose: Not Given Documented by: Medical - PN: A/P - Time Spent With Patient Total time spent is greater than 50% in coordination of care (as documented) at patient's floor/unit and/or counseling patient: Greater than 35 minutes (critical care time) (1) Septic shock Status: Acute Assessment and plan: * Septic shock secondary to right lower lobe pneumonia-multiple end organ dysfunction. Continue crystalloids/pressors to keep map at goal. Management per guidelines * Escherichia coli bacteremia-continue surveillance cultures. CT abdomen and pelvis chest for source evaluation. Broad antibiotic * Right lower lobe pneumonia -continue empiric antibiotics/supplemental oxygen. Sputum Gram stain * Complicated Escherichia coli UTI- continue broad antibiotic coverage/urine culture/tasted based on sensitivities. Abdominal imaging to rule out obstructive uropathy * Chronic kidney disease-continue monitoring * A. fib RVR with a history of Paroxysmal atrial fibrillation-continue IV metoprolol as needed * Anticoagulation on Pradaxa * History of dementia on donepezil * Anxiety disorder on sertraline * Code full code Plan * Continue Broad antibiotic coverage/vasopressors/pancultures and sepsis management per guidelines * Surveillance cultures/CT abdomen and pelvis * Rate control measures * Anticoagulation Current Visit: Yes Medical - PN: Qual - VTE Deep Vein Thrombosis/Pulmonary Embolism Present on Admission: No
[2018-11-11 08:36] LABS: Band Neutrophils % 5 % (0-10); Lymphocytes % 9 % (15-49); Monocytes % (Manual) 5 % (1-12); Platelet Estimate NORMAL (NORMAL); RBC Morphology NORMAL (NORMAL); Segmented Neutrophils % 81 % (38-78)
--- NOTE | 2018-11-11 09:03 | Cat Scan Report ---
History: Bacteremia TECHNIQUE: Patient was imaged without oral or intravenous contrast from the thoracic inlet through the symphysis pubis. No intravenous contrast was administered due to diminished renal function. The radiation exposure was limited using dose reduction technology. Sagittal and coronal reformats were created. FINDINGS: Chest: Mild emphysema is present in both lungs with the greatest involvement in the right upper lobe. There are small linear bands of scar tissue in the medial segment of the right middle lobe and inferior segment of the lingula and posterior basal segment of the left lower lobe. There is also mild pleural thickening posteriorly at the left lung base which is probably scar. There are a few bands of discoid atelectasis posteriorly and medially in the right lung base. There is no alveolar infiltrate. No pulmonary mass or pleural effusion are present. There are no abnormally enlarged lymph nodes. The thyroid is somewhat heterogeneous and the isthmus is thickened. This may be due to a goiter. No discrete thyroid mass is identified. There is a moderate amount calcified plaque in the aorta and coronary arteries. Heart is borderline enlarged. Aorta is normal in caliber. There is a small hiatus hernia. Abdomen and pelvis: Evaluation of the abdominal organs without intravenous contrast is somewhat limited. No abnormality is seen within the liver or spleen. The pancreas appears normal in size and homogeneous. The gallbladder has been removed. The bile ducts are normal in caliber. There is hyperplasia of the left adrenal. Right adrenal is normal. There is mild atrophy of the left kidney. There is no hydronephrosis. No abnormality is seen in the right kidney. There are multiple diverticula in the descending and sigmoid colon but without evidence of acute diverticulitis. The urinary bladder is decompressed by Enamorado catheter. Uterus and ovaries are atrophic. There are multiple calcifications within the uterus. No ascites or abscess are present within the abdomen or pelvis. Patient has had prior laminectomy and fusion of the lower lumbar spine. There are degenerative changes throughout the spine. A moderate levoscoliotic curvature is present in the lumbar spine. IMPRESSION: Emphysema Discoid atelectasis in the right lower lobe and small bands of scar tissue in left lower lobe, lingula and right middle lobe Diverticulosis but without diverticulitis Mild atrophy of the left kidney Interpreted and Authenticated by: Farhan Caruso 11/11/18
[2018-11-11] MEDS: DOCUSATE SODIUM 100 MG CAPSULE PO SCH ×2 (09:19→20:18)
[2018-11-11] MEDS: 0.9 % SODIUM CHLORIDE 250 ML IV SCH ×2 (10:52→23:46)
[2018-11-11] MEDS: 0.9 % SODIUM CHLORIDE 1,000 ML IV SCH ×2 (14:23→23:48)
[2018-11-11] MEDS: SENNOSIDES/DOCUSATE SODIUM 1 TAB TABLET PO SCH (20:15)
[2018-11-11] MEDS: ATORVASTATIN 20 MG TABLET PO SCH (20:16)
[2018-11-11] MEDS: DABIGATRAN ETEXILATE MESYLATE 75 MG CAPSULE PO SCH (20:16)
[2018-11-11] MEDS: DONEPEZIL 10 MG TABLET PO SCH (20:18)
[2018-11-11] MEDS: SERTRALINE 50 MG TABLET PO SCH (20:30)
[2018-11-11] MEDS: NOREPINEPHRINE BITARTRATE 16 MG in 0.9 % SODIUM CHLORIDE 234 ML IV SCH (23:45)
[2018-11-12] MEDS: PIPERACILLIN SODIUM/TAZOBACTAM 2.25 GM in DEXTROSE 5% IN WATER 50 ML IV SCH ×2 (00:06→05:35)
[2018-11-12 05:39] LABS: Mean Cell Volume 95.3 fL (80.0-100.0); Mean Corpuscular HGB Conc 32.8 g/dL (31.0-36.0); Platelet Count 189 K/mcL (140-440); Red Cell Distribution Width 13.8 % (11.5-14.5)
[2018-11-12] MEDS: 0.9 % SODIUM CHLORIDE 10 ML SYRINGE IV SCH ×3 (05:52→22:13)
[2018-11-12 06:11] LABS: ALT/SGPT 11 U/l (0-40); Albumin 2.9 gm/dL (3.2-5.2); Alkaline Phosphatase 82 U/L (39-117); Bilirubin,Direct < 0.2 mg/dL (0.0-0.3); Blood Urea Nitrogen 20 mg/dl (8-23); Gamma Glutamyl Transpeptidase 18 U/L (5-36); Uric Acid 2.9 mg/dL (2.5-8.0)
[2018-11-12 06:39] LABS: Basophils % (Manual) 1 % (0-2); Lymphocytes % 8 % (15-49); Monocytes % (Manual) 8 % (1-12); Platelet Estimate NORMAL (NORMAL); RBC Morphology NORMAL (NORMAL); Segmented Neutrophils % 83 % (38-78)
[2018-11-12] MEDS: LEVOFLOXACIN 750 MG/150 ML BAG IV SCH (07:52)
--- NOTE | 2018-11-12 08:22 | XRay Report ---
HISTORY: Emphysema, fever FINDINGS: There are bands of scar or discoid atelectasis above the right diaphragm and at the left lung base. There is no evidence of pneumonia, pulmonary mass or congestive heart failure. The heart is mildly enlarged but magnified by portable technique. A moderate amount of calcified plaque is present in the aortic arch. Lung volumes are normal. There is a small hiatus hernia behind the left heart border. Allowing for differences in technique there has been no significant change from the chest CT performed yesterday. IMPRESSION: Scar versus discoid atelectasis in both lung bases and no evidence of pneumonia Interpreted and Authenticated by: Farhan Caruso 11/12/18
[2018-11-12] MEDS: DABIGATRAN ETEXILATE MESYLATE 75 MG CAPSULE PO SCH ×2 (09:47→20:06)
[2018-11-12] MEDS: 0.9 % SODIUM CHLORIDE 250 ML IV SCH ×2 (09:47→22:13)
[2018-11-12] MEDS: DOCUSATE SODIUM 100 MG CAPSULE PO SCH ×2 (09:47→20:06)
[2018-11-12] MEDS: METOPROLOL SUCCINATE 50 MG TAB.XL.24H PO SCH (09:50)
[2018-11-12] MEDS: cefTRIAXone 2 GM in DEXTROSE 5% IN WATER 50 ML IV SCH (09:50)
[2018-11-12] MEDS: 0.9 % SODIUM CHLORIDE 1,000 ML IV SCH ×2 (09:55→19:34)
--- NOTE | 2018-11-12 15:19 | Internal Med Progress Note ---
Medical - PN: Subj Patient information: Note initiated : 11/12/18 at 3:15 pm Service Date, if different from initiated Date: [] Patient: Margaret Trujillo 87 y/o F admitted on 11/10/18 for Fever. Chief Complaint: [] Interval history: Ms. Trujillo is a 87 year old F assisted care facility resident who was brought in after she has a progressive mental status decline over the last 24 hours. The staff is concerned because of high-grade fever and decreased level of responsiveness. Patient was last seen normal 36 hour prior to presentation. She has been getting pretty confused with increasing lethargic malaise and loss of appetite. No further history could be obtained Initial workup in the ER was consistent with severe sepsis with elevated white count, evidence of end organ dysfunction with blood pressure systolics 80s. Patient started on broad antibiotic coverage after imaging revealed right sided infiltrate. Hospitalist service was subsequently consulted At the time of evaluation patient is lethargic fatigued and confused. No further history could be obtained. Most of the history was obtained from review of medical records. Patient is currently being challenges with crystalloids to keep map at goal. Admitted to ICU in light of systolics 80s. Patient be initiated on pressors. 11/11-overnight only Levophed/crystalloids with intermittent RVR. Critically ill. MAXIMUM TEMPERATURE 103. White count over 23,000. gram-negative rods on blood cultures. CT chest, abdomen and pelvis to evaluate source for bacteremia. Repeat surveillance cultures. Continue antibiotic coverage 11/12- patient doing well. Except for intermittent A. fib RVR not responding to metoprolol. Started on digoxin load. No other concerns per staff. Off pressors. Stable hemodynamics. Improving urine output. White count down from 23,000-13,000. Urine culture Escherichia coli pansensitive. Antibiotic Descalated to Rocephin. Ongoing physical therapy. - Constitutional Vitals: Vital Signs Temp Pulse Resp BP Pulse Ox 99.2 F H 62 20 115/89 95 11/12/18 08:01 11/12/18 12:01 11/12/18 12:29 11/12/18 12:01 11/12/18 12:01 Period Temp Pulse Resp BP Sys/Cruz Pulse Ox Last 24 Hr 99.2 F-100.4 F 43-81 13-23 89-151/57-136 83-96 Intake and Output 11/12/18 11/12/18 11/12/18 05:59 13:59 21:59 Intake Total 50 1377 Output Total 745 390 Balance -695 987 Intake & Output: Intake & Output 11/12/18 11/12/18 11/12/18 05:59 13:59 21:59 Intake Total 50 1377 Output Total 745 390 Balance -695 987 Intake: IV 50 977 Sodium Chloride 0.9% 1,000 ml @ 977 50 mls/hr IV .Q20H [facility] Rx#: [id number] Zosyn 2.25 gm In Dextrose 5% in 50 Water 50 ml @ 100 mls/hr IV Q6H [facility] Rx#:[id number] Oral 400 Output: Urine Catheter Amount 745 390 Other: Meal Lunch Percent of Meal Consumed 100% Feeding Ability Assist with Tray Set Up Urine Appearance Uretheral ([place]am[place]) Clear Urine Color Uretheral ([place]) Dark Yellow Stool Size Large Stool Color Brown Stool Consistency Soft Formed Loose # Bowel Movements 1 General appearance: no acute distress Exam: Alert oriented Nonlabored breathing No anxiety Nondistended abdomen A. fib RVR with rate around 130s Chest clear to auscultation except for basilar crackles Medical - PN: Obj Da - Labs CBC & Chem 7: 11/13/18 03:42 11/13/18 03:42 Labs: Abnormal Lab Results 11/12/18 11/12/18 11/11/18 03:50 03:50 03:31 WBC 13.0 H RBC 3.40 L Hgb 10.6 L Hct 32.4 L Gran % Lymph % (Auto) Gran # Lymph # (Auto) [place] # (Auto) Seg Neutrophils % 83 H Lymphocytes % 8 L Chloride 111 H Carbon Dioxide 19 L 20 L Creatinine 1.4 H 1.5 H Glucose Calcium 8.4 L 8.5 L Phosphorus 2.5 L Total Protein 5.7 L Albumin 2.9 L Urine Protein Urine Occult Blood Urine Nitrate Ur Leukocyte Esterase Urine RBC Urine WBC 11/11/18 11/10/18 11/10/18 03:31 18:12 17:36 WBC 23.6 H RBC 3.80 L Hgb 11.8 L Hct Gran % Lymph % (Auto) Gran # Lymph # (Auto) [place] # (Auto) Seg Neutrophils % 81 H Lymphocytes % 9 L Chloride Carbon Dioxide 21 L Creatinine 1.5 H Glucose 118 H Calcium Phosphorus Total Protein Albumin Urine Protein 100 A Urine Occult Blood 0.03 A Urine Nitrate Pos A Ur Leukocyte Esterase 250 A Urine RBC 52 H Urine WBC > 182 H 11/10/18 17:36 WBC 15.9 H RBC Hgb Hct Gran % 86.7 H Lymph % (Auto) 5.1 L Gran # 13.8 H Lymph # (Auto) 0.8 L [place] # (Auto) 1.3 H Seg Neutrophils % Lymphocytes % Chloride Carbon Dioxide Creatinine Glucose Calcium Phosphorus Total Protein Albumin Urine Protein Urine Occult Blood Urine Nitrate Ur Leukocyte Esterase Urine RBC Urine WBC Meds: Medications Acetaminophen (Tylenol) 650 mg PO Q4-6HP PRN PRN Reason: PAIN/FEVER > 101 Albuterol/Ipratropium (Duoneb) 3 ml NEB Q4HP PRN PRN Reason: Shortness Of Breath Atorvastatin Calcium (Lipitor) 10 mg PO [facility] Last Admin: 11/11/18 20:16 Dose: 10 mg Documented by: Dabigatran (Pradaxa) 75 mg PO BID [facility] Last Admin: 11/12/18 09:47 Dose: 75 mg Documented by: Docusate Sodium (Colace) 100 mg PO BID [facility] Last Admin: 11/12/18 09:47 Dose: 100 mg Documented by: Donepezil HCl (Aricept) 10 mg PO QHS [facility] Last Admin: 11/11/18 20:18 Dose: 10 mg Documented by: Sodium Chloride (Sodium Chloride 0.9%) 250 mls @ 20 mls/hr IV .[id number] [facility] Last Admin: 11/12/18 09:47 Dose: Not Given Documented by: Magnesium Sulfate (Magnesium Sulfate) 2 gm in 50 mls @ 50 mls/hr IV UD PRN PRN Reason: MG = or < 1.7 Norepinephrine Bitartrate 16 (mg/ Sodium Chloride) 250 mls @ 9.38 mls/hr IV Q24H [facility]; Protocol Last Admin: 11/11/18 23:45 Dose: Not Given Documented by: Sodium Chloride (Sodium Chloride 0.9%) 1,000 mls @ 50 mls/hr IV .Q20H [facility] Stop: 11/13/18 09:03 Last Admin: 11/12/18 09:55 Dose: 50 mls/hr Documented by: Acetaminophen (Ofirmev) 1,000 mg in 100 mls @ 200 mls/hr IV Q6HP PRN PRN Reason: PAIN/FEVER > 101 Ceftriaxone Sodium 2 gm/ (Dextrose) 50 mls @ 100 mls/hr IV Q24H [facility]; Protocol Last Admin: 11/12/18 09:50 Dose: 100 mls/hr Documented by: Metoprolol Succinate (Toprol Xl) 50 mg PO QDAY [facility] Last Admin: 11/12/18 09:50 Dose: 50 mg Documented by: Ondansetron HCl (Zofran) 4 mg IV Q4-6HP PRN PRN Reason: Nausea And Vomiting Potassium Chloride (Klor-Con) 40 meq PO DAILYP PRN PRN Reason: K+ < 3.5 Senna/Docusate Sodium (Senna Plus Tablet) 1 tab PO HS [facility] Last Admin: 11/11/18 20:15 Dose: 1 tab Documented by: Sertraline HCl (Zoloft) 50 mg PO QHS [facility] Last Admin: 11/11/18 20:30 Dose: 50 mg Documented by: Sodium Chloride (Saline Flush) 10 ml IV Q8 [facility] Last Admin: 11/12/18 05:52 Dose: 10 ml Documented by: Medical - PN: A/P - Time Spent With Patient Total time spent is greater than 50% in coordination of care (as documented) at patient's floor/unit and/or counseling patient: Greater than 35 minutes (1) Septic shock Status: Acute Assessment and plan: * Septic shock secondary to Escherichia coli bacteremia-clinically improving. Off pressors. Map at goal. Lactate downtrending. Continue antibiotic coverage. * Escherichia coli bacteremia- surveillance cultures negative. Likely genitourinary source. CT abdomen no evidence of pneumonia or obstructive uropathy or intra-abdominal process. Likely source genitourinary * Complicated Escherichia coli UTI-negative abdominal CT. Continue Rocephin * Acute on chronic Chronic kidney-creatinine and downtrending * Right lower lobe pneumonia -interval resolution on chest imaging. Now on room air * A. fib RVR with a history of Paroxysmal atrial fibrillation-currently on digoxin load * Anticoagulation for CVA prophylaxis on Pradaxa * History of dementia on donepezil * Anxiety disorder on sertraline * Code full code Plan * Digoxin load * Continue antibiotics through November 24(last negative surveillance culture 4/23) * Continue PT OT * Continue Anticoagulation Current Visit: Yes Medical - PN: Qual - VTE Deep Vein Thrombosis/Pulmonary Embolism Present on Admission: No
[2018-11-12] MEDS ORDERED: NOREPINEPHRINE BITARTRATE 16 MG in 0.9 % SODIUM CHLORIDE 234 ML IV PRN (15:45)
[2018-11-12] MEDS: SERTRALINE 50 MG TABLET PO SCH (20:06)
[2018-11-12] MEDS: ATORVASTATIN 20 MG TABLET PO SCH (20:06)
[2018-11-12] MEDS: DONEPEZIL 10 MG TABLET PO SCH (20:06)
[2018-11-12] MEDS: SENNOSIDES/DOCUSATE SODIUM 1 TAB TABLET PO SCH (20:07)
[2018-11-12] MEDS ORDERED: METOPROLOL TARTRATE 5 MG/5 ML VIAL IV ONE ×2 (22:55→23:19)
[2018-11-12] MEDS: METOPROLOL TARTRATE 5 MG/5 ML VIAL IV SCH ×2 (23:00→23:29)
[2018-11-13] MEDS ORDERED: DIGOXIN 500 MCG/2 ML AMPUL IV ONE (00:26)
[2018-11-13] MEDS: METOPROLOL TARTRATE 5 MG/5 ML VIAL IV SCH (00:44)
[2018-11-13] MEDS: 0.9 % SODIUM CHLORIDE 10 ML SYRINGE IV SCH ×4 (05:59→20:10)
[2018-11-13 06:03] LABS: Mean Cell Volume 95.8 fL (80.0-100.0); Mean Corpuscular HGB Conc 32.5 g/dL (31.0-36.0); Platelet Count 197 K/mcL (140-440); Red Cell Distribution Width 13.9 % (11.5-14.5)
[2018-11-13 06:28] LABS: ALT/SGPT 9 U/l (0-40); Albumin 2.7 gm/dL (3.2-5.2); Alkaline Phosphatase 67 U/L (39-117); Bilirubin,Direct < 0.2 mg/dL (0.0-0.3); Blood Urea Nitrogen 13 mg/dl (8-23); Gamma Glutamyl Transpeptidase 18 U/L (5-36)
[2018-11-13 07:43] LABS: Lymphocytes % 10 % (15-49); Monocytes % (Manual) 5 % (1-12); Platelet Estimate NORMAL (NORMAL); RBC Morphology NORMAL (NORMAL); Segmented Neutrophils % 85 % (38-78)
[2018-11-13] MEDS: cefTRIAXone 2 GM in DEXTROSE 5% IN WATER 50 ML IV SCH (09:37)
[2018-11-13] MEDS: METOPROLOL SUCCINATE 50 MG TAB.XL.24H PO SCH (09:37)
[2018-11-13] MEDS: DOCUSATE SODIUM 100 MG CAPSULE PO SCH ×2 (09:38→21:32)
[2018-11-13] MEDS: DABIGATRAN ETEXILATE MESYLATE 75 MG CAPSULE PO SCH ×2 (09:38→20:10)
--- NOTE | 2018-11-13 10:13 | Internal Med Progress Note ---
Medical - PN: Subj Patient information: Note initiated : 11/13/18 at 10:10 am Service Date, if different from initiated Date: [] Patient: Margaret Trujillo 87 y/o F admitted on 11/10/18 for Fever. Chief Complaint: [] Interval history: Ms. Trujillo is a 87 year old F assisted care facility resident who was brought in after she has a progressive mental status decline over the last 24 hours. The staff is concerned because of high-grade fever and decreased level of responsiveness. Patient was last seen normal 36 hour prior to presentation. She has been getting pretty confused with increasing lethargic malaise and loss of appetite. No further history could be obtained Initial workup in the ER was consistent with severe sepsis with elevated white count, evidence of end organ dysfunction with blood pressure systolics 80s. Patient started on broad antibiotic coverage after imaging revealed right sided infiltrate. Hospitalist service was subsequently consulted At the time of evaluation patient is lethargic fatigued and confused. No further history could be obtained. Most of the history was obtained from review of medical records. Patient is currently being challenges with crystalloids to keep map at goal. Admitted to ICU in light of systolics 80s. Patient be initiated on pressors. 11/11-overnight only Levophed/crystalloids with intermittent RVR. Critically ill. MAXIMUM TEMPERATURE 103. White count over 23,000. gram-negative rods on blood cultures. CT chest, abdomen and pelvis to evaluate source for bacteremia. Repeat surveillance cultures. Continue antibiotic coverage 11/12- patient doing well. Except for intermittent A. fib RVR not responding to metoprolol. Started on digoxin load. No other concerns per staff. Off pressors. Stable hemodynamics. Improving urine output. White count down from 23,000-13,000. Urine culture Escherichia coli pansensitive. Antibiotic Descalated to Rocephin. Ongoing physical therapy. 11/13-patient doing well. No overnight events. Escherichia coli on cultures currently on Rocephin. Currently in sinus after digoxin load. Continue telemetry monitoring. Anticipate discharge in 24 hours. Remains off pressors. White count down from 23,600->8.9. Improved end organ dysfunction with improving creatinine down from 1.5-1.2. Possible discharge in 24 hours on oral antibiotics through november 24 - Constitutional Vitals: Vital Signs Temp Pulse Resp BP Pulse Ox 99.2 F H 60 19 152/66 94 11/13/18 09:00 11/13/18 09:00 11/13/18 09:00 11/13/18 09:00 11/13/18 09:00 Period Temp Pulse Resp BP Sys/Cruz Pulse Ox Last 24 Hr 98.2 F-99.2 F 56-142 11-26 73-152/39-105 92-98 Intake and Output 11/12/18 11/13/18 11/13/18 21:59 05:59 13:59 Intake Total 0 368 1240 Output Total 430 870 208 Balance -430 -502 1032 Weight 170 lb 14.4 oz Intake & Output: Intake & Output 11/12/18 11/13/18 11/13/18 21:59 05:59 13:59 Intake Total 0 368 1240 Output Total 430 870 208 Balance -430 -502 1032 Weight 170 lb 14.4 oz Intake: IV 368 1000 Sodium Chloride 0.9% 1,000 ml @ 1000 50 mls/hr IV .Q20H [facility] Rx#: [id number] Sodium Chloride 0.9% 250 ml @ 0 20 mls/hr IV .[id number] [facility] Rx#: [id number] Rocephin 2 gm In Dextrose 5% in 50 Water 50 ml @ 100 mls/hr IV Q24H [facility] Rx#:[id number] Oral 0 240 Output: Urine Catheter Amount 430 870 208 Other: Meal Breakfast Percent of Meal Consumed 50% Urine Appearance Cloudy Clear Uretheral ([place]) Cloudy Clear Urine Color Straw Bright Yellow Uretheral ([place]) Straw Straw Stool Size Small Stool Color Brown Stool Consistency Soft Loose # of times incontinent of 1 Bowels General appearance: no acute distress Exam: Alert oriented Sitting on chair Currently in sinus Nonlabored breathing No anxiety Foleys draining clear urine Medical - PN: Obj Da - Labs CBC & Chem 7: 11/13/18 03:42 11/13/18 03:42 Labs: Abnormal Lab Results 11/13/18 11/13/18 11/12/18 03:42 03:42 03:50 WBC RBC 3.30 L Hgb 10.3 L Hct 31.6 L Gran % Lymph % (Auto) Gran # Lymph # (Auto) Pershing # (Auto) Seg Neutrophils % 85 H Lymphocytes % 10 L Chloride 112 H 111 H Carbon Dioxide 19 L 19 L Creatinine 1.2 H 1.4 H Glucose Calcium 8.3 L 8.4 L Phosphorus 2.6 L 2.5 L Total Protein 5.3 L 5.7 L Albumin 2.7 L 2.9 L Urine Protein Urine Occult Blood Urine Nitrate Ur Leukocyte Esterase Urine RBC Urine WBC 11/12/18 11/11/18 11/11/18 03:50 03:31 03:31 WBC 13.0 H 23.6 H RBC 3.40 L 3.80 L Hgb 10.6 L 11.8 L Hct 32.4 L Gran % Lymph % (Auto) Gran # Lymph # (Auto) Pershing # (Auto) Seg Neutrophils % 83 H 81 H Lymphocytes % 8 L 9 L Chloride Carbon Dioxide 20 L Creatinine 1.5 H Glucose Calcium 8.5 L Phosphorus Total Protein Albumin Urine Protein Urine Occult Blood Urine Nitrate Ur Leukocyte Esterase Urine RBC Urine WBC 11/10/18 11/10/18 11/10/18 18:12 17:36 17:36 WBC 15.9 H RBC Hgb Hct Gran % 86.7 H Lymph % (Auto) 5.1 L Gran # 13.8 H Lymph # (Auto) 0.8 L Pershing # (Auto) 1.3 H Seg Neutrophils % Lymphocytes % Chloride Carbon Dioxide 21 L Creatinine 1.5 H Glucose 118 H Calcium Phosphorus Total Protein Albumin Urine Protein 100 A Urine Occult Blood 0.03 A Urine Nitrate Pos A Ur Leukocyte Esterase 250 A Urine RBC 52 H Urine WBC > 182 H Meds: Medications Acetaminophen (Tylenol) 650 mg PO Q4-6HP PRN PRN Reason: PAIN/FEVER > 101 Last Admin: 11/12/18 20:05 Dose: 650 mg Documented by: Albuterol/Ipratropium (Duoneb) 3 ml NEB Q4HP PRN PRN Reason: Shortness Of Breath Atorvastatin Calcium (Lipitor) 10 mg PO [facility] Last Admin: 11/12/18 20:06 Dose: 10 mg Documented by: Dabigatran (Pradaxa) 75 mg PO BID [facility] Last Admin: 11/13/18 09:38 Dose: 75 mg Documented by: Docusate Sodium (Colace) 100 mg PO BID [facility] Last Admin: 11/13/18 09:38 Dose: Not Given Documented by: Donepezil HCl [facility]pt) [facility] Last Admin: 11/12/18 20:06 Dose: 10 mg Documented by: Sodium Chloride (Sodium Chloride 0.9%) 250 mls @ 20 mls/hr IV .[id number] [facility] Last Infusion: 11/12/18 23:03 Dose: Infused Documented by: Magnesium Sulfate (Magnesium Sulfate) 2 gm in 50 mls @ 50 mls/hr IV UD PRN PRN Reason: MG = or < 1.7 Acetaminophen (Ofirmev) 1,000 mg in 100 mls @ 200 mls/hr IV Q6HP PRN PRN Reason: PAIN/FEVER > 101 Ceftriaxone Sodium 2 gm/ (Dextrose) 50 mls @ 100 mls/hr IV Q24H [facility]; Protocol Last Admin: 11/13/18 09:37 Dose: 100 mls/hr Documented by: Norepinephrine Bitartrate 16 (mg/ Sodium Chloride) 250 mls @ 9.38 mls/hr IV Q24HP PRN; Protocol PRN Reason: Hypotension Metoprolol Succinate (Toprol Xl) 50 mg PO QDAY [facility] Last Admin: 11/13/18 09:37 Dose: 50 mg Documented by: Ondansetron HCl (Zofran) 4 mg IV Q4-6HP PRN PRN Reason: Nausea And Vomiting Potassium Chloride (Klor-Con) 40 meq PO DAILYP PRN PRN Reason: K+ < 3.5 Senna/Docusate Sodium (Senna Plus Tablet) 1 tab PO HS [facility] Last Admin: 11/12/18 20:07 Dose: Not Given Documented by: Sertraline HCl (Zoloft) 50 mg PO QHS [facility] Last Admin: 11/12/18 20:06 Dose: 50 mg Documented by: Sodium Chloride (Saline Flush) 10 ml IV Q8 [facility] Last Admin: 11/13/18 05:59 Dose: Not Given Documented by: Medical - PN: A/P - Time Spent With Patient Total time spent is greater than 50% in coordination of care (as documented) at patient's floor/unit and/or counseling patient: 25 - 35 minutes (1) Septic shock Status: Acute Assessment and plan: * Septic shock secondary to Escherichia coli bacteremia-clinically improving. Off pressors. Map at goal. Lactate downtrending. Continue antibiotic coverage. * Escherichia coli bacteremia- surveillance cultures negative. Likely genitourinary source. CT abdomen no evidence of pneumonia or obstructive uropathy or intra-abdominal process. Likely source genitourinary * Complicated Escherichia coli UTI-pansensitive. Continue Rocephin * Acute on chronic Chronic kidney-creatinine and downtrending * Right lower lobe pneumonia -interval resolution on chest imaging. Now on room air * A. fib RVR with a history of Paroxysmal atrial fibrillation-currently on digoxin load * Anticoagulation for CVA prophylaxis on Pradaxa * History of dementia on donepezil * Anxiety disorder on sertraline * Code full code Plan * DC Enamorado's catheter * Continue antibiotics through November 24(last negative surveillance culture 11/11) * Continue PT OT * Pre-existing medical condition management on home meds Current Visit: Yes Medical - PN: Qual - VTE Deep Vein Thrombosis/Pulmonary Embolism Present on Admission: No
[2018-11-13] MEDS ORDERED: IPRATROPIUM/ALBUTEROL 3 ML AMPUL.NEB NEB PRN (10:32)
[2018-11-13] MEDS ORDERED: ACETAMINOPHEN 325 MG TABLET PO PRN (10:32)
[2018-11-13] MEDS ORDERED: POTASSIUM CHLORIDE 20 MEQ PACKET PO PRN (10:32)
[2018-11-13] MEDS ORDERED: MAGNESIUM SULFATE 2 GM/50 ML BAG IV PRN (10:32)
[2018-11-13] MEDS ORDERED: ONDANSETRON 4 MG/2 ML VIAL IV PRN (10:32)
[2018-11-13] MEDS ORDERED: ACETAMINOPHEN 1,000 MG/100 ML BOTTLE IV PRN (10:32)
[2018-11-13] MEDS: 0.9 % SODIUM CHLORIDE 250 ML IV SCH (10:49)
--- NOTE | 2018-11-13 13:49 | Discharge Summary ---
Medical - DS: Prov Patient information: Note initiated : 11/13/18 at 1:44 pm Service Date, if different from initiated Date: [] Patient: Margaret Trujillo 87 y/o F admitted on 11/10/18 for Fever. Chief Complaint: [] Date of admission: 11/10/18 20:40 Discharge date: 11/14/18 Primary care physician: Mark Campos Consults: 11/10/18 Consult to Physician [CONS] Stat Comment: Consulting Provider: Des Sheffield Reason For Exam: Physician to Consult Medical - DS: Meds - Discharge Medications Prescriptions: Cefdinir 300 mg PO BID #16 cap Lactobacillus [Culturelle] 1 cap PO BID #40 cap Active and Home Medications: Home Medications Underpads, Washable #2 each 10/09/17 [Rx Confirmed 11/03/18 Last Taken Unknown] acetaminophen 325 mg tablet 650 mg PO Q4H PRN #90 tab 10/09/17 [Rx Confirmed 11/11/18 Last Taken Unknown] loperamide 2 mg capsule 2 mg PO .COMPLEX PRN #30 cap MDD 8 capsules 10/09/17 [Rx Confirmed 11/11/18 Last Taken Unknown] psyllium oral powder 2 tsp PO QDAY PRN #300 g 10/09/17 [Rx Confirmed 11/11/18 Last Taken Unknown] terbinafine HCl 1 % topical cream 1 applic TOPICAL .COMPLEX #30 g 10/09/17 [Rx Confirmed 11/11/18 Last Taken 10/28/18 07:00] polyethylene glycol 3350 17 gram/dose oral powder 17 g PO BID PRN #255 g 03/19/18 [Rx Confirmed 11/11/18 Last Taken Unknown] sennosides 8.6 mg-docusate sodium 50 mg tablet 1 tab PO BID #180 tab 03/19/18 [Rx Confirmed 11/11/18 Last Taken Unknown] vitamins A,C,L-ghry-xtuofm 14,320 unit-226 mg-200 unit capsule 1 cap PO BID 04/17/18 [History Confirmed 11/11/18 Last Taken 11/10/18 09:00] pantoprazole 40 mg tablet,delayed release 40 mg PO QDAY #90 tab 04/29/18 [Rx Confirmed 11/11/18 Last Taken 11/10/18 09:00] donepezil 10 mg tablet 10 mg PO QHS #90 tab 09/26/18 [Rx Confirmed 11/11/18 Last Taken Unknown] metoprolol succinate ER 50 mg tablet,extended release 24 hr 50 mg PO QDAY #90 tab 09/26/18 [Rx Confirmed 11/11/18 Last Taken 11/10/18 09:00] oxybutynin chloride ER 10 mg tablet,extended release 24 hr 10 mg PO QAM #90 tab 09/26/18 [Rx Confirmed 11/11/18 Last Taken Unknown] sertraline 50 mg tablet 50 mg PO QHS #90 tab 10/13/18 [Rx Confirmed 11/11/18 Last Taken 11/09/18 20:00] cholecalciferol (vitamin D3) 2,000 unit capsule 2,000 unit PO QAM #90 cap 10/17/18 [Rx Confirmed 11/11/18 Last Taken 11/10/18 09:00] atorvastatin 10 mg tablet 10 mg PO QHS #90 tab 10/21/18 [Rx Confirmed 11/11/18 Last Taken 11/09/18 08:00] calcium carbonate 600 mg calcium (1,500 mg) tablet 600 mg PO QAM #90 tab 10/21/18 [Rx Confirmed 11/11/18 Last Taken 11/10/18 08:00] dabigatran etexilate 75 mg capsule 75 mg PO BID #180 cap 10/21/18 [Rx Confirmed 11/11/18 Last Taken 11/10/18 09:00] diltiazem CD 120 mg capsule,extended release 24 hr 120 mg PO QAM #90 cap 10/21/18 [Rx Confirmed 11/11/18 Last Taken 11/10/18 09:00] furosemide 20 mg tablet 20 mg PO .COMPLEX #90 tab 10/21/18 [Rx Confirmed 11/11/18 Last Taken 11/10/18 08:30] uvebvbgw-ard-xzyrm acid 0.4 mg-lycopene 300 mcg-lutein 250 mcg tablet 1 tab PO QAM #90 tab 10/21/18 [Rx Confirmed 11/11/18 Last Taken 11/10/18 09:00] cyanocobalamin (vit B-12) 500 mcg tablet 500 mcg PO QAM #90 tab 10/28/18 [Rx Confirmed 11/11/18 Last Taken Unknown] Briefs, Pull-Ups, Pads/Liners PRN 11/11/18 [History Last Taken Unknown] Carboxymethyl/Gly/Poly80/Pf [Refresh Optive Advanced Drops] 1 each OU QID 11/11/18 [History Confirmed 11/11/18 Last Taken 11/10/18 16:00] Underpads, Disposable PRN PRN 11/11/18 [History Last Taken Unknown] Home Medications Underpads, Washable #2 each 10/09/17 [Rx Confirmed 11/03/18 Last Taken Unknown] acetaminophen 325 mg tablet 650 mg PO Q4H PRN #90 tab 10/09/17 [Rx Confirmed 11/11/18 Last Taken Unknown] loperamide 2 mg capsule 2 mg PO .COMPLEX PRN #30 cap MDD 8 capsules 10/09/17 [Rx Confirmed 11/11/18 Last Taken Unknown] psyllium oral powder 2 tsp PO QDAY PRN #300 g 10/09/17 [Rx Confirmed 11/11/18 Last Taken Unknown] terbinafine HCl 1 % topical cream 1 applic TOPICAL .COMPLEX #30 g 10/09/17 [Rx Confirmed 11/11/18 Last Taken 10/28/18 07:00] polyethylene glycol 3350 17 gram/dose oral powder 17 g PO BID PRN #255 g 03/19/18 [Rx Confirmed 11/11/18 Last Taken Unknown] sennosides 8.6 mg-docusate sodium 50 mg tablet 1 tab PO BID #180 tab 03/19/18 [Rx Confirmed 11/11/18 Last Taken Unknown] vitamins A,C,V-tjnl-cuqblz 14,320 unit-226 mg-200 unit capsule 1 cap PO BID 04/17/18 [History Confirmed 11/11/18 Last Taken 11/10/18 09:00] pantoprazole 40 mg tablet,delayed release 40 mg PO QDAY #90 tab 04/29/18 [Rx Confirmed 11/11/18 Last Taken 11/10/18 09:00] donepezil 10 mg tablet 10 mg PO QHS #90 tab 09/26/18 [Rx Confirmed 11/11/18 Last Taken Unknown] metoprolol succinate ER 50 mg tablet,extended release 24 hr 50 mg PO QDAY #90 tab 09/26/18 [Rx Confirmed 11/11/18 Last Taken 11/10/18 09:00] oxybutynin chloride ER 10 mg tablet,extended release 24 hr 10 mg PO QAM #90 tab 09/26/18 [Rx Confirmed 11/11/18 Last Taken Unknown] sertraline 50 mg tablet 50 mg PO QHS #90 tab 10/13/18 [Rx Confirmed 11/11/18 Last Taken 11/09/18 20:00] cholecalciferol (vitamin D3) 2,000 unit capsule 2,000 unit PO QAM #90 cap 10/17/18 [Rx Confirmed 11/11/18 Last Taken 11/10/18 09:00] atorvastatin 10 mg tablet 10 mg PO QHS #90 tab 10/21/18 [Rx Confirmed 11/11/18 Last Taken 11/09/18 08:00] calcium carbonate 600 mg calcium (1,500 mg) tablet 600 mg PO QAM #90 tab 10/21/18 [Rx Confirmed 11/11/18 Last Taken 11/10/18 08:00] dabigatran etexilate 75 mg capsule 75 mg PO BID #180 cap 10/21/18 [Rx Confirmed 11/11/18 Last Taken 11/10/18 09:00] diltiazem CD 120 mg capsule,extended release 24 hr 120 mg PO QAM #90 cap 09/09 [Rx Confirmed 11/11/18 Last Taken 11/10/18 09:00] furosemide 20 mg tablet 20 mg PO .COMPLEX #90 tab 10/21/18 [Rx Confirmed 11/11/18 Last Taken 11/10/18 08:30] ekrmzpex-oxs-hwmlt acid 0.4 mg-lycopene 300 mcg-lutein 250 mcg tablet 1 tab PO QAM #90 tab 10/21/18 [Rx Confirmed 11/11/18 Last Taken 11/10/18 09:00] cyanocobalamin (vit B-12) 500 mcg tablet 500 mcg PO QAM #90 tab 10/28/18 [Rx Confirmed 11/11/18 Last Taken Unknown] Briefs, Pull-Ups, Pads/Liners PRN 11/11/18 [History Last Taken Unknown] Carboxymethyl/Gly/Poly80/Pf [Refresh Optive Advanced Drops] 1 each OU QID 11/11/18 [History Confirmed 11/11/18 Last Taken 11/10/18 16:00] Underpads, Disposable PRN PRN 11/11/18 [History Last Taken Unknown] Cefdinir 300 mg PO BID #16 cap 11/13/18 [Rx Last Taken Unknown] Lactobacillus [Culturelle] 1 cap PO BID #40 cap 11/14/18 [Rx Last Taken Unknown] Medical - DS: Hosp Hospital course: Ms. Trujillo is a 87 year old F assisted care facility resident who was brought in after she has a progressive mental status decline over the last 24 hours. The staff is concerned because of high-grade fever and decreased level of responsiveness. Patient was last seen normal 36 hour prior to presentation. She has been getting pretty confused with increasing lethargic malaise and loss of appetite. No further history could be obtained Initial workup in the ER was consistent with severe sepsis with elevated white count, evidence of end organ dysfunction with blood pressure systolics 80s. Patient started on broad antibiotic coverage after imaging revealed right sided infiltrate. Hospitalist service was subsequently consulted At the time of evaluation patient is lethargic fatigued and confused. No further history could be obtained. Most of the history was obtained from review of medical records. Patient is currently being challenges with crystalloids to keep map at goal. Admitted to ICU in light of systolics 80s. Patient be initiated on pressors. 11/11-overnight only Levophed/crystalloids with intermittent RVR. Critically ill. MAXIMUM TEMPERATURE 103. White count over 23,000. gram-negative rods on blood cultures. CT chest, abdomen and pelvis to evaluate source for bacteremia. Repeat surveillance cultures. Continue antibiotic coverage 11/12- patient doing well. Except for intermittent A. fib RVR not responding to metoprolol. Started on digoxin load. No other concerns per staff. Off pressors. Stable hemodynamics. Improving urine output. White count down from 23,000-13,000. Urine culture Escherichia coli pansensitive. Antibiotic Descalated to Rocephin. Ongoing physical therapy. 11/13-patient doing well. No overnight events. Escherichia coli on cultures currently on Rocephin. Currently in sinus after digoxin load. Continue telemetry monitoring. Anticipate discharge in 24 hours. Remains off pressors. White count down from 23,600->8.9. Improved end organ dysfunction with improving creatinine down from 1.5-1.2. Possible discharge in 24 hours on oral antibiotics through november 24. 11/14 No overnight events. Patient doing well. Patient had diarrhea yesterday C. difficile negative. Stable for discharge. Discharge diagnosis: E. coli bacteremia septic shock complicated UTI acute kidney injury Secondary discharge diagnosis: Right lower lobe pneumonia A. fib with RVR dementia depression anxiety - Time Spent with Patient Total time spent providing and/or coordinating discharge services: Greater than 30 minutes Medical - DS: Exam - Constitutional Vitals: Vital Signs Temp Pulse Resp BP Pulse Ox 11/13/18 13:05 98.9 F 11/13/18 13:03 99.1 F H 118/55 11/13/18 12:01 98.9 F 53 L 16 118/55 96 11/13/18 11:01 98.7 F 57 L 16 128/58 95 11/13/18 10:03 99.0 F 64 17 131/52 94 11/13/18 09:17 99.3 F H 64 20 152/66 94 11/13/18 09:00 99.2 F H 60 19 152/66 94 11/13/18 07:01 57 L 18 130/102 97 11/13/18 06:01 58 L 26 H 128/96 97 11/13/18 05:01 56 L 15 139/54 95 11/13/18 04:01 59 L 18 135/57 95 11/13/18 03:01 60 14 120/105 97 11/13/18 02:01 57 L 15 123/64 96 11/13/18 01:01 64 17 106/62 95 11/13/18 00:52 132 H 17 111/78 96 11/13/18 00:44 118 H 23 H 104/70 96 11/13/18 00:42 98.4 F 116 H 19 96 11/13/18 00:41 128 H 25 H 73/39 96 11/13/18 00:05 116 H 14 91/64 96 11/13/18 00:01 132 H 19 75/67 97 11/12/18 23:26 142 H 17 93/57 97 11/12/18 23:09 134 H 16 96/54 96 11/12/18 23:01 126 H 16 99/70 96 11/12/18 22:01 110 H 16 116/82 94 11/12/18 21:01 111 H 11 L 107/73 92 11/12/18 20:01 98.2 F 77 23 H 144/102 97 11/12/18 19:22 98 11/12/18 19:01 71 20 143/66 96 11/12/18 18:57 71 18 142/75 97 11/12/18 16:30 21 11/12/18 16:01 62 18 132/74 97 11/12/18 16:00 98.2 F 11/12/18 15:21 59 L 21 95 11/12/18 15:01 18 138/65 11/12/18 14:01 60 15 121/75 95 Intake and Output 11/12/18 11/13/18 11/13/18 21:59 05:59 13:59 Intake Total 0 368 1290 Output Total 430 870 208 Balance -430 -502 1082 Intake: IV 368 1050 Sodium Chloride 0.9% 1,000 ml @ 1000 50 mls/hr IV .Q20H [facility] Rx#: [id number] Sodium Chloride 0.9% 250 ml @ 0 20 mls/hr IV .[id number] [facility] Rx#: [id number] Rocephin 2 gm In Dextrose 5% in 50 50 Water 50 ml @ 100 mls/hr IV Q24H [facility] Rx#:[id number] Oral 0 240 Output: Urine Catheter Amount 430 870 208 Other: Meal Breakfast Percent of Meal Consumed 50% Urine Appearance Cloudy Clear Uretheral ([place]) Cloudy Clear Clear Urine Color Straw Bright Yellow Uretheral ([place]) Straw Straw Bright Yellow Stool Size Small Stool Color Brown Stool Consistency Soft Loose # of times incontinent of 1 Bowels Weight 77.519 kg Medical - DS: Data Labs on day of discharge: Labs from last 24 hours 11/13/18 11/13/18 03:42 03:42 WBC 8.9 RBC 3.30 L Hgb 10.3 L Hct 31.6 L MCV 95.8 MCH 31.1 MCHC 32.5 RDW 13.9 Plt Count 197 MPV 9.5 Total Counted 100 Seg Neutrophils % 85 H Band Neutrophils % Not Reportable Lymphocytes % 10 L Monocytes % (Manual) 5 Platelet Estimate Normal RBC Morphology Normal Sodium 142 Potassium 3.9 Chloride 112 H Carbon Dioxide 19 L Anion Gap 11.0 BUN 13 Creatinine 1.2 H GFR Calculation 40 Glucose 81 Uric Acid 3.0 Calcium 8.3 L Phosphorus 2.6 L Magnesium 1.9 Total Bilirubin 0.2 Direct Bilirubin < 0.2 GGT 18 AST 20 ALT 9 Alkaline Phosphatase 67 Lactate Dehydrogenase 180 Total Protein 5.3 L Albumin 2.7 L Globulin 2.6 Albumin/Globulin Ratio 1.0 Triglycerides 138 Preliminary micro results at discharge 11/11/18 09:09 Blood Culture - Preliminary Blood 11/11/18 08:57 Blood Culture - Preliminary Blood 11/10/18 17:36 Blood Culture - Preliminary Blood Escherichia coli 11/10/18 17:54 Blood Culture - Preliminary Blood Escherichia coli Medical - DS: A/P - Patient/Caregiver Discharge Instructions Activity: as per physical therapy Diet: Cardiac Prescriptions: Cefdinir 300 mg PO BID #16 cap Lactobacillus [Culturelle] 1 cap PO BID #40 cap - Follow up Plan Follow up with: Mark Campos MD [Primary Care Provider] - 11/21/18 11:15 am (Please check in at 11:00) Disposition: Xfer SNF Prognosis: Serious Rehab Potential: Fair I certify that the patient requires SNF services: Yes Overall status at discharge: patient is progressing back to baseline Medical - DS: Qual - VTE Deep Vein Thrombosis/Pulmonary Embolism Present on Admission: No
[2018-11-13] MEDS ORDERED: DONEPEZIL 10 MG TABLET PO SCH (21:00)
[2018-11-13] MEDS ORDERED: SENNOSIDES/DOCUSATE SODIUM 1 TAB TABLET PO SCH (21:00)
[2018-11-13] MEDS ORDERED: ATORVASTATIN 20 MG TABLET PO SCH (21:00)
[2018-11-13] MEDS ORDERED: SERTRALINE 50 MG TABLET PO SCH (21:00)
[2018-11-14] MEDS: 0.9 % SODIUM CHLORIDE 10 ML SYRINGE IV SCH ×2 (05:36→12:48)
[2018-11-14 06:04] LABS: Mean Cell Volume 95.6 fL (80.0-100.0); Mean Corpuscular HGB Conc 32.9 g/dL (31.0-36.0); Platelet Count 223 K/mcL (140-440); RBC 3.28 M/mcL (4.00-5.20); Red Cell Distribution Width 13.9 % (11.5-14.5)
[2018-11-14 06:26] LABS: ALT/SGPT 10 U/l (0-40); Albumin/Globulin Ratio 1.1 (1.0-2.3); Alkaline Phosphatase 62 U/L (39-117); Bilirubin,Direct < 0.2 mg/dL (0.0-0.3); Blood Urea Nitrogen 12 mg/dl (8-23); Gamma Glutamyl Transpeptidase 20 U/L (5-36); Uric Acid 3.2 mg/dL (2.5-8.0)
[2018-11-14 07:31] LABS: Eosinophils % (Manual) 1 % (0-7); Lymphocytes % 20 % (15-49); Monocytes % (Manual) 6 % (1-12); Platelet Estimate NORMAL (NORMAL); RBC Morphology ABNORM (NORMAL); Segmented Neutrophils % 73 % (38-78)
[2018-11-14] MEDS ORDERED: METOPROLOL SUCCINATE 50 MG TAB.XL.24H PO SCH (09:00)
[2018-11-14] MEDS ORDERED: cefTRIAXone 2 GM in DEXTROSE 5% IN WATER 50 ML IV SCH (09:00)
[2018-11-14] MEDS: DOCUSATE SODIUM 100 MG CAPSULE PO SCH (09:51)
[2018-11-14] MEDS: DABIGATRAN ETEXILATE MESYLATE 75 MG CAPSULE PO SCH (09:57)
[2018-11-14] MEDS ORDERED: cefTRIAXone 2 GM VIAL ONE (09:57)
[2018-11-14] MEDS ORDERED: LACTOBACILLUS 1 CAPSULE PO SCH (11:16)
== END 2018-11-14 14:06 | DRG 193 ==
LOC: ED 17:16 → ICU 20:40
PROVIDERS: ADMIT Internal Medicine; ATTEND Internal Medicine